=== PATIENT | female | born 2000 | race Hispanic/Latino ===

== ENCOUNTER 2025-02-15 11:06 | Emergency (ER) | payer OTHER ==
[~2025-02-15] VITALS: Ht 154.9 cm; Wt 92.1 kg
--- NOTE | 2025-02-15 11:54 | ERN ---
General Chief Complaint: Abdominal Pain Stated Complaint: ABD Time Seen by MD: 11:12 Source: patient History of Present Illness Initial Comments Mrs. Gordon is a 24-year-old female who presented to the emergency department with complaints of abdominal pain. The patient complains of left lower quadrant abdominal pain that is remitting and relapsing in nature. She states that the pain lasts just for a second or so and disappears until it is back again. She states that she has been suffering from constipation since a long time I most recently went to her PCP who prescribed her 10 mL of lactulose for constipation which she took yesterday night. She states that her stools are hard in consistency. Her last bowel movement was today morning. She also states that she vomited yesterday night. She states that the vomit was the salad that she just ate. Her last menstrual period was in mid November but she states that her periods used to be regular until last year. She did not have a urine test done since November. She denies urinary symptoms at the moment. In the ED her vitals look stable physical examination was unremarkable. Allergies: Coded Allergies: No Known Drug Allergies (Unverified Allergy, Unknown, 02/15/25) Home Meds Active Scripts Magnesium Hydroxide (Milk of Magnesium 30Ml) 400 Mg/5 Ml Susp, 5 ML PO BID for constipation for 30 Days, #300 ML 0 Refills Prov:WILFREDO HOOD MD 02/15/25 Past Medical History Past Medical History: No Pertinent History Past Surgical History: None ROS Dictation ROS Dictation CONSTITUTIONAL: No chills, no fever, no weakness, no diaphoresis, no malaise. HEAD/FACE: No signs of trauma. EENT: No eye pain, no blurred vision, no tearing, no double vision, no ear pain, no ear discharge, no nose pain, no nasal congestion, no throat pain, no throat swelling, no mouth pain. RESPIRATORY: No cough, no orthopnea, no SOB, no stridor, no wheezing. CARDIOVASCULAR: No chest pain, no edema, no palpitations, no syncope. GASTROINTESTINAL/ABDOMINAL: Left lower quadrant abdominal pain, constipation, no diarrhea, no nausea, vomiting yesterday night. GENITOURINARY: No abnormal discharge, no dysuria, no frequent urination, no hematuria. No complaints of pain in the genitals. MUSCULOSKELETAL: No back pain, no gout, no joint pain, no joint swelling, no muscle pain, no muscle stiffness, no neck pain. INTEGUMENTARY: No change in color, no change in hair/nails, no dryness, no lesion, no lumps, no rash. NEUROLOGICAL/PSYCH: No anxiety, not depressed, no emotional problem, no headache, no numbness, no pre-existing deficit, no history of seizures, no tremors, no weakness. HEMATOLOGIC/LYMPHATIC: Not anemic, no history of blood clots, no apparent bleeding, no bruising, glands not swollen. All Systems Negative, Except as Noted. Physical Exam Physical Exam Dictation Physical Exam Dictation VITAL SIGNS: Reviewed. GENERAL APPEARANCE: Alert, oriented x3 HEAD AND FACE: Non-traumatic. EYES: PERRL, pink conjunctivas, eyelid no trauma, anterior chamber clear. EARS: Pinnas intact and no signs of trauma or erythema. Ear canals clear and no discharge. TMs no erythema. NOSE: No discharge, no bleeding. OROPHARYNX: Mouth normal, teeth no caries, tongue pink. Pharynx clear, no erythema. Tonsils no exudates, no abscesses noted. Mucous membrane moist. NECK: Supple, non-tender, no thyromegaly, no masses, no JVD, no bruits. BREAST: Deferred. CHEST: No tenderness, no crepitus, no paradoxical movement, no retractions. LUNGS: Clear, well-ventilated, symmetric, no rales, no wheezing, no rhonchi, no stridor, good breath sounds bilaterally. HEART: Regular rate, regular rhythm, no murmur, no gallops. VASCULAR: No peripheral edema. ABDOMEN: Soft, positive bowel sounds, nondistended, no guarding, nontender, no rebound, no masses no hepatomegaly, no splenomegaly, no Mcdaniel's sign, no hernias. RECTAL: Deferred. GENITAL: Deferred. NEUROLOGICAL: Normal speech, gross motor function intact, gross sensory function intact. MUSCULOSKELETAL: Neck nontender, full range of motion, back nontender, full range of motion. EXTREMITIES: Nontender, full range of motion. SKIN: Color pink, dry, no turgor, no rash, no lacerations, no abrasions, no contusions. LYMPHATICS: Deferred. Results Laboratory and Microbiology Lab and Micro Result Laboratory Tests Test 02/15/25 11:46 02/15/25 11:52 Urine Color LIGHT-YELLOW (YELLOW) Urine Appearance CLEAR (CLEAR) Urine pH 6.5 (5.0-8.0) Urine Specific Golden 1.009 (1.001-1.031) Urine Protein NEGATIVE mg/dL (NEGATIVE) Urine Glucose (UA) NEGATIVE mg/dL (NEGATIVE) Urine Ketones NEGATIVE mg/dL (NEGATIVE) Urine Occult Blood NEGATIVE (NEGATIVE) Urine Nitrate NEGATIVE (NEGATIVE) Urine Bilirubin NEGATIVE mg/dL (NEGATIVE) Urine Urobilinogen 0.2 mg/dL (0.2-1.0) Urine Leukocyte Esterase NEGATIVE Amelia/uL Urine HCG, Qualitative NEGATIVE (NEGATIVE) White Blood Count 9.0 K/uL (4.8-10.8) Red Blood Count 4.76 MIL/uL (4.00-5.50) Hemoglobin 14.8 g/dL (12.0-16.0) Hematocrit 43.1 % (36-48) Mean Corpuscular Volume 90.5 fL (79-99) Mean Corpuscular Hemoglobin 31.1 pg (27.0-33.0) Mean Corpuscular Hemoglobin Concent 34.3 g/dL (32.0-36.0) Red Cell Distribution Width 11.6 % (11.0-15.5) Platelet Count 354 K/uL (130-400) Mean Platelet Volume 10.4 fL (7.5-10.5) Immature Granulocyte % (Auto) 0.3 % (0-1) Neutrophils (%) (Auto) 64.9 % (40.0-77.0) Lymphocytes (%) (Auto) 29.3 % (21.0-51.0) Monocytes (%) (Auto) 4.3 % (3.0-13.0) Eosinophils (%) (Auto) 0.6 % (0.0-8.0) Basophils (%) (Auto) 0.6 % (0.0-5.0) Neutrophils # (Auto) 5.8 K/uL (1.8-7.7) Lymphocytes # (Auto) 2.6 K/uL (1.0-4.8) Monocytes # (Auto) 0.4 K/uL (0.1-1.0) Eosinophils # (Auto) 0.05 K/uL (0.00-0.70) Basophils # (Auto) 0.05 K/uL (0.00-0.20) Absolute Immature Granulocyte (auto 0.03 K/uL (0-1) Nucleated Red Blood Cells 0.0 % (0.0-0.19) Sodium Level 138 mmol/L (136-145) Potassium Level 3.7 mmol/L (3.5-5.1) Chloride Level 103 mmol/L (101-111) Carbon Dioxide Level 28 mmol/L (21-32) Blood Urea Nitrogen 9 mg/dL (7-18) Creatinine 0.4 mg/dL (0.5-1.0) L Glomerular Filtration Rate Calc 143 mL/min (>90) Random Glucose 98 mg/dL (70-105) Total Calcium 9.1 mg/dL (8.5-10.1) EKG/XRAY/US/CT/MRI X-RAY Comment [address] [address] IMAGING REPORT Signed PATIENT: ODESSA GORDON MR#: [id number] : 2000 SEX: F AGE: 24 LOCATION: [facility] ORDER [id number] STATUS: [facility] REPORT#: [id number] SERVICE [id number] REASON: Abdoinal pain ORDERING PHYSICIAN: WILFREDO HOOD MD PROCEDURE: ABD 1VW - ABD 1VW EXAM: CR Abdomen, 2 View. CLINICAL HISTORY: Abdoinal pain COMPARISON: None provided. FINDINGS: BOWEL: The bowel gas pattern is within normal limits. Abundant colonic fecal matter may reflect constipation. PERITONEUM/SOFT TISSUES: No free air evident. No pathologic appearing calcification. BONES: No acute osseous abnormality. IMPRESSION: The bowel gas pattern is within normal limits. Abundant colonic fecal matter may reflect constipation. /[place] DICTATED BY: HERMAN RHODES Jr., MD DATE: 02/15/251411 ELECTRONICALLY SIGNED BY: HERMAN RHODES Jr., MD DATE: 02/15/25 141 [facility] Chief complaint: Patient presented to the emergency department with complaints of left-sided lower abdominal pain. Past medical history: Past medical history is unremarkable. Vitals: In the emergency department the patient's vitals were stable. Physical examination: Physical examination did not reveal any abnormalities. Review of systems: Review of systems was positive for left-sided abdominal pain, constipation, isolated episode of vomiting but otherwise unremarkable. Laboratory results: Laboratory results were all within normal limits. Imaging results: Imaging results did not reveal any significant abnormality Differential: Constipation, appendicitis, pancreatitis. Assessment and plan: Based on the laboratory results and imaging results we have ruled out appendicitis and pancreatitis in this patient. Based on the history and our evaluation we have thereby diagnosed the patient with abdominal pain from chronic constipation. Patient will be discharged home on oral milk of magnesium solution and was advised to follow up with PCP. ED Course Orders Procedure Category Date Status Time ,Urine Test LAB 02/15/25 Complete 11: Cbc With Differential LAB 02/15/25 Complete 11: Abd 1vw RAD 02/15/25 Resulted 11:28 Basic Metabolic Panel LAB 02/15/25 Complete 11:28 Urinalysis Profile LAB 02/15/25 Complete 11:39 Vital Signs Date Time Temp Pulse Resp B/P (MAP) Pulse Ox O2 Delivery O2 Flow Rate FiO2 02/15/25 13:28 97.9 86 20 133/77 99 Room Air* 0 21 02/15/25 11:07 97.9 73 16 115/78 97 Room Air DX & DISP Disposition: Discharge Departure Impression: Primary Impression: Constipation Condition: Stable Scripts Magnesium Hydroxide (Milk of Magnesium 30Ml) 400 Mg/5 Ml Susp 5 ML PO BID for constipation for 30 Days, #300 ML 0 Refills Prov: WILFREDO HOOD MD 02/15/25 Additional Instructions: You presented to the emergency department with complaints of left-sided abdominal pain. We performed a series of laboratory evaluations to assess for any serious causes which did not reveal any significant abnormalities. We performed x-rays to ascertain the origin of your abdominal pain which was unremarkable. Based on our evaluation we have ruled out serious causes of your pain. We are here by prescribing you oral milk of magnesium solution to relieve your constipation. Please take the medication as indicated. Take Tylenol as needed for symptomatic relief of the pain. Follow up with your PCP if the symptoms persist. If your symptoms worsen/increase in frequency/change in intensity we advise you to go to the nearest emergency department. I performed a substantive portion of the visit. I have reviewed and personally made and approve the management plan that is documented in the notes by myself with TERESE/resident. I acknowledged full responsibility for the patient's management plan. WILFREDO HOOD MD Feb 15, 2025 11:54 FRANK YANG DO Feb 16, 2025 08:20
[2025-02-15 12:00] LABS: APPEARANCE,URINE CLEAR (CLEAR); GLUCOSE, URINE (UA) NEGATIVE (NEGATIVE); LEUKOCYTE ESTERASE ,URINE NEGATIVE Leu/uL (NEGATIVE); NITRATE,URINE NEGATIVE (NEGATIVE); OCCULT BLOOD,URINE NEGATIVE (NEGATIVE)
[2025-02-15 12:08] LABS: IMMATURE GRANULOCYTE ABSOLUTE 0.03 K/uL (0-1); NUCLEATED RED BLOOD CELLS 0.0 % (0.0-0.19); PLATELET COUNT (AUTO) 354 K/uL (130-400); RED BLOOD CELL COUNT(AUTO) 4.76 MIL/uL (4.00-5.50); RED CELL DISTRIBUTION WIDTH 11.6 % (11.0-15.5); WHITE BLOOD COUNT (AUTO) 9.0 K/uL (4.8-10.8)
[2025-02-15 12:09] LABS: ADD UA MICROSCOPIC NO
[2025-02-15 12:13] LABS: CREATININE 0.4 mg/dL (0.5-1.0); GLOMERULAR FILTR. RATE CALC 143.0 mL/min (>90); GLUCOSE,RANDOM 98.0 mg/dL (70-105); SODIUM SERUM 138.0 mmol/L (136-145); UREA NITROGEN, BLOOD 9.0 mg/dL (7-18)
--- NOTE | 2025-02-15 13:13 | HMCIMG ---
EXAM: CR Abdomen, 2 View. CLINICAL HISTORY: Abdoinal pain COMPARISON: None provided. FINDINGS: BOWEL: The bowel gas pattern is within normal limits. Abundant colonic fecal matter may reflect constipation. PERITONEUM/SOFT TISSUES: No free air evident. No pathologic appearing calcification. BONES: No acute osseous abnormality. IMPRESSION: The bowel gas pattern is within normal limits. Abundant colonic fecal matter may reflect constipation. /[place]
[2025-02-15] MEDS ORDERED: MOM30 PO (13:14)
[2025-02-15 13:28] VITALS: BP 133/77; PULSE 86; RESP 20; TEMP 97.9; O2SAT 99
== END 2025-02-15 13:34 | disposition home or self-care (01) ==
LOC: EDH 11:06
DX: K59.00 Constipation, unspecified (principal)
CPT/HCPCS: 36415; 74018; 80048; 81003; 81025; 85025; 99284